=== PATIENT | female | born 1965 | race Two or more races ===

== ENCOUNTER → 2017-07-04 | Outpatient (CLI) | payer BC ==
--- NOTE | 2017-07-09 09:30 | RAD ---
DATE: 07/04/2017 EXAM: DIGITAL SCREEN BILAT W/CAD HISTORY: 52-year-old female presents for screening mammography. COMPARISON: 11/23/2011 TECHNIQUE: Flow field digital craniocaudal and mediolateral oblique views of both breasts are obtained. This study was interpreted with the benefit of Computerized Aided Detection (CAD). FINDINGS: The breast parenchyma heterogeneously dense, which could reduce sensitivity of mammography. Level C. There is no new suspicious mass, calcification or distortion within either breast. There is stable focal asymmetry within the posterior slightly lateral aspect of the right breast, allowing for differences in patient positioning and compression technique. IMPRESSION: Benign findings. BI-RADS CATEGORY: 2 BENIGN FINDING RECOMMENDED FOLLOW-UP: 12M 12 MONTH FOLLOW-UP PQRS compliance statement: Patient information was entered into a reminder system with a target due date in one year for the next mammogram. Mammography is a sensitive method for finding small breast cancers, but it does not detect them all and is not a substitute for careful clinical examination. A negative mammogram does not negate a clinically suspicious finding and should not result in delay in biopsying a clinically suspicious abnormality. "Our facility is accredited by the [employer] Mammography Program."
== END | disposition home or self-care (01) ==
LOC: MAMMO 14:01
PROVIDERS: ATTEND Specialist
DX: Z12.31 Encounter for screening mammogram for malignant neoplasm of breast (principal)
CPT/HCPCS: G0202; 77067